=== PATIENT | female | born 1995 | race Caucasian/White ===

== ENCOUNTER 2020-08-04 20:23 | Emergency (ER) | payer MEDICAID ==
[~2020-08-04] VITALS: Ht 162.6 cm; Wt 63.5 kg
[2020-08-04 20:40] VITALS: BP_SYST 103
[2020-08-04] MEDS ORDERED: NACL 0.9% 1,000 ML IV ONE (21:45)
--- NOTE | 2020-08-04 21:52 | NUR ---
Patient to ER bed 5 to gown for evaluation. Side rails up. Report given to CHRIST GOLDEN.
--- NOTE | 2020-08-04 22:16 | NUR ---
LAB AT BEDSIDE FOR BLOOD DRAW.
--- NOTE | 2020-08-04 22:25 | NUR ---
PT A&O X4 BIB BLS FROM [facility] FOR LOWER ABDOMINAL PAIN AND VOMITING X1 DAY. PT RATES PAIN 6 OUT OF 10. PT DENIES DIARRHEA, SOB, CHEST PAIN. WILL CONTINUE TO MONITOR.
--- NOTE | 2020-08-04 22:30 | NUR ---
PT ASKED TO CHANGE INTO GOWN AND GIVE URINE SAMPLE. PT THEN PROCEEDED TO STAY LAYING IN BED AND SLEEP.
[2020-08-04 22:34] LABS: BASOPHILS % (AUTO) 0.3 % (0.0-2.0); EOSINOPHILS # (AUTO) 0.1 K/uL (0.0-0.4); EOSINOPHILS % (AUTO) 1.7 % (0.0-4.0); HEMATOCRIT 28.5 % (36-48); HEMOGLOBIN 8.9 g/dL (12.0-16.0); LYMPHOCYTES # (AUTO) 1.5 K/uL (1.0-5.5); LYMPHOCYTES % (AUTO) 19.9 % (20.5-51.5); MEAN CORPUSCULAR HEMOGLOBIN 26 pg (27-31); MEAN CORPUSCULAR HGB CONC 31 % (32-36); MEAN CORPUSCULAR VOLUME 82 fL (79.0-98.0); MONOCYTES # (AUTO) 0.9 K/uL (0.0-1.0); MONOCYTES % (AUTO) 11.7 % (1.7-9.3); NEUTROPHILS % (AUTO) 66.4 % (40.0-70.0); PLATELET COUNT (AUTO) 488 K/uL (130-430); RED BLOOD CELL COUNT(AUTO) 3.48 MIL/uL (4.2-6.2); RED CELL DISTRIBUTION WIDTH 21.5 % (9.0-15.0); WHITE BLOOD COUNT (AUTO) 7.6 K/uL (4.8-10.8)
--- NOTE | 2020-08-04 22:36 | NUR ---
PATIENT REFUSED IV AND FLUIDS.
--- NOTE | 2020-08-04 22:39 | NUR ---
Patient transported to radiology via WHEELCHAIR, accompanied by STAFF.
--- NOTE | 2020-08-04 22:51 | NUR ---
Returned from radiology, back to [facility].
[2020-08-04 22:55] LABS: BILIRUBIN,URINE NEGATIVE (NEGATIVE); BLOOD, URINE NEGATIVE (NEGATIVE); CLARITY/URINE CLEAR (CLEAR); COLOR,URINE YELLOW (YELLOW); GLUCOSE,URINE NEGATIVE (NEGATIVE); KETONES,URINE NEGATIVE (NEGATIVE); LEUKOCYTE ESTERASE ,URINE NEGATIVE (NEGATIVE); NITRITE, URINE NEGATIVE (NEGATIVE); PROTEIN URINE NEGATIVE (NEGATIVE); UROBILINOGEN,URINE 0.2 (0.2-1.0)
--- NOTE | 2020-08-04 23:06 | NUR ---
DR. AARON AT BEDSIDE. PT REFUSING TO TALK WITH OR COOPERATE.
[2020-08-04 23:21] LABS: CALCIUM 8.1 mg/dL (8.4-11.0); CREATININE 0.38 mg/dL (0.55-1.30); POTASSIUM 3.3 mmol/L (3.5-5.1)
[2020-08-04 23:26] LABS: ALBUMIN 2.6 g/dL (3.4-4.8); TOTAL BILIRUBIN 0.2 mg/dL (0.0-1.0)
[2020-08-05 00:29] VITALS: BP_SYST 112
--- NOTE | 2020-08-05 00:29 | NUR ---
Patient given written and verbal discharge instructions and verbalizes understanding. ER MD discussed with patient the results and treatment provided. Patient in stable condition. ID arm band removed. NO Rx given. Patient educated on pain management and to follow up with PMD. Pain Scale 0/10. Opportunity for questions provided and answered. Medication side effect fact sheet provided.
== END 2020-08-05 00:29 | disposition home or self-care (01) ==
LOC: SED 20:23
DX: D64.9 Anemia, unspecified (principal); R10.9 Unspecified abdominal pain
CPT/HCPCS: 36415; 70450-TC; 76376; 80053; 81003; 81025; 83690-TC; 85025; 99284